=== PATIENT | female | born 1940 | race Caucasian/White ===

== ENCOUNTER 2016-11-24 10:34 | Inpatient (IN) | payer OTHER ==
[~2016-11-24] VITALS: Ht 165.1 cm; Wt 82.5 kg
[2016-11-24 11:44] LABS: CALCIUM 8.5 mg/dL (8.5-10.1); CARBON DIOXIDE 24.9 mmol/L (21-32); CHLORIDE SERUM 94 mmol/L (98-107); CREATININE SERUM 1.4 mg/dL (0.6-1.0); GLUCOSE SERUM 291 mg/dL (74-106); POTASSIUM SERUM 3.4 mmol/L (3.5-5.1); SODIUM SERUM 128 mmol/L (136-145)
[2016-11-24 11:45] LABS: BASOPHIL % 0.2 % (0-2); PLATELET COUNT 186 x10^3mcL (130-400); RED CELL DISTRIBUTION WIDTH 13.3 % (11.5-14.5)
[2016-11-24 11:48] LABS: ALKALINE PHOSPHATASE 60 U/L (46-116); ALT/SGPT 18 U/L (14-59); AST/SGOT 10 U/L (15-37); BILIRUBIN TOTAL 0.6 mg/dL (0.20-1.00); LIPASE 98 IU/L (73-393); TOTAL PROTEIN, SERUM 6.6 g/dL (6.4-8.2)
[2016-11-24 11:49] LABS: ALBUMIN 3.2 g/dL (3.4-5.0); AMYLASE 19 U/L (25-115)
[2016-11-24 13:16] LABS: microscopic required? NO
[2016-11-24] MEDS ORDERED: METFORMIN HCL1000 MG PO (13:34)
[2016-11-24] MEDS ORDERED: VICTOZA6 MG/M1 SC (13:34)
[2016-11-24] MEDS ORDERED: JANUVIA100 M1 PO (13:35)
[2016-11-24] MEDS ORDERED: DIOVAN160 MG PO (13:35)
[2016-11-24 13:52] LABS: UA SPECIFIC GRAVITY <=1.005 (1.005-1.035); urine erythrocyte NEGATIVE (NEGATIVE)
[2016-11-24 14:13] LABS: T3 TOTAL 0.89 ng/mL
[2016-11-24 14:29] LABS: FREE THYROXINE INDEX 2.6 ug/dL (1.4-4.5); T4(THYROXINE) 7.5 ug/dL (4.7-13.3)
[2016-11-24 14:30] LABS: MAGNESIUM 1.2 mg/dL (1.8-2.4); PHOSPHOROUS 3.4 mg/dL (2.5-4.9)
[2016-11-24 14:59] VITALS: BP 119/91
[2016-11-24 15:00] LABS: FREE T4 1.3 ng/dL (0.76-1.46)
[2016-11-24 17:16] VITALS: BP 113/63
[2016-11-24 21:07] VITALS: BP 113/66
[2016-11-25 06:13] VITALS: BP 106/65
[2016-11-25 06:21] LABS: BASOPHIL % 0.3 % (0-2); PLATELET COUNT 159 x10^3mcL (130-400); RED CELL DISTRIBUTION WIDTH 13.5 % (11.5-14.5)
[2016-11-25 06:30] LABS: CARBON DIOXIDE 23.7 mmol/L (21-32); CHLORIDE SERUM 111 mmol/L (98-107); CREATININE SERUM 1.1 mg/dL (0.6-1.0); GLUCOSE SERUM 194 mg/dL (74-106); MAGNESIUM 2.1 mg/dL (1.8-2.4); PHOSPHOROUS 3.1 mg/dL (2.5-4.9); POTASSIUM SERUM 4.4 mmol/L (3.5-5.1); SODIUM SERUM 145 mmol/L (136-145)
[2016-11-25 08:35] LABS: CALCIUM 7.9 mg/dL (8.5-10.1)
[2016-11-25 10:02] VITALS: BP 105/65
[2016-11-25 14:31] VITALS: BP 96/50
[2016-11-25 15:09] VITALS: BP 103/59
[2016-11-25 17:29] VITALS: BP 111/66
[2016-11-25 21:44] VITALS: BP 103/53
[2016-11-26 06:04] VITALS: BP 110/66
[2016-11-26 06:38] LABS: CALCIUM 8.5 mg/dL (8.5-10.1); CARBON DIOXIDE 25.2 mmol/L (21-32); CHLORIDE SERUM 109 mmol/L (98-107); CREATININE SERUM 1.2 mg/dL (0.6-1.0); GLUCOSE SERUM 160 mg/dL (74-106); MAGNESIUM 1.7 mg/dL (1.8-2.4); PHOSPHOROUS 3.5 mg/dL (2.5-4.9); POTASSIUM SERUM 4.1 mmol/L (3.5-5.1); SODIUM SERUM 143 mmol/L (136-145)
[2016-11-26 06:44] LABS: BASOPHIL % 0.4 % (0-2); PLATELET COUNT 148 x10^3mcL (130-400); RED CELL DISTRIBUTION WIDTH 13.2 % (11.5-14.5)
[2016-11-26 09:18] VITALS: BP 104/54
[2016-11-26] MEDS ORDERED: LIPI10 PO (11:42)
[2016-11-26] MEDS ORDERED: LEVEMIR100 U/M1 SQ (11:48)
[2016-11-26] MEDS ORDERED: ECO81 PO (11:49)
[2016-11-26] MEDS ORDERED: THERA TABS1 TAB PO (11:58)
[2016-11-26 12:17] VITALS: BP 133/69
[2016-11-26 13:04] VITALS: BP 133/69
== END 2016-11-26 13:53 | disposition home or self-care (01) | DRG 391 ==
LOC: ED 10:34 → DU 13:13
PROVIDERS: Emergency Medicine; ADMIT Family Medicine
DX: K52.9 Noninfective gastroenteritis and colitis, unspecified (principal); N17.0 Acute kidney failure with tubular necrosis; J98.11 Atelectasis; E87.1 Hypo-osmolality and hyponatremia; D68.69 Other thrombophilia; E11.59 Type 2 diabetes mellitus with other circulatory complications; E11.51 Type 2 diabetes mellitus with diabetic peripheral angiopathy without gangrene; E11.65 Type 2 diabetes mellitus with hyperglycemia; I16.0 Hypertensive urgency; E87.6 Hypokalemia; E83.42 Hypomagnesemia; E86.0 Dehydration; M51.36 Other intervertebral disc degeneration, lumbar region; K44.9 Diaphragmatic hernia without obstruction or gangrene; E03.9 Hypothyroidism, unspecified; E78.1 Pure hyperglyceridemia; D64.9 Anemia, unspecified; Z68.30 Body mass index [BMI] 30.0-30.9, adult; Z79.84 Long term (current) use of oral hypoglycemic drugs
CPT/HCPCS: 83880; 84439; 87046; 87046-59; J1815; J2405; J3475; J7030; Q0092